=== PATIENT | female | born 1985 | race African-American/Black ===

== ENCOUNTER 2017-10-20 06:51 | Emergency (ER) | payer OTHER ==
[~2017-10-20] VITALS: Ht 152.4 cm; Wt 80.8 kg
[2017-10-20 06:56] VITALS: TEMP 36.9; Ht 152.4 cm; Wt 80.8 kg
[2017-10-20 07:28] VITALS: O2SAT 99
[2017-10-20 08:02] LABS: BASO % 0.3 %; BASO ABS # 0.02 K/uL (0-0.2); EOS % 1.1 %; EOS ABS # 0.08 K/uL (0-0.5); HEMATOCRIT 28.1 % (37-47); HEMOGLOBIN 8.7 g/dL (12.0-16.0); IG# 0.01 K/uL (0.00-0.02); LYMPH % 38.8 %; LYMPH ABS # 2.79 K/uL (1.2-3.4); MEAN CELL VOLUME 73.4 fL (80-100); MEAN CORPUSCULAR HEMOGLOBIN 22.7 pg (25-34); MEAN PLATELET VOLUME 9.9 fL (7.4-10.4); MONO % 5.8 %; MONO ABS # 0.42 K/uL (0.11-0.59); NEUT % 53.9 %; NEUT ABS # 3.88 K/uL (1.4-6.5); PLATELET COUNT 360 K/uL (130-400); RED CELL DISTRIBUTION WIDTH CV 17.7 % (11.5-14.5); RED CELL DISTRIBUTION WIDTH SD 47.7 fL (36.4-46.3)
[2017-10-20 08:14] LABS: ALBUMIN 3.1 gm/dl (3.4-5.0); ALT/SGPT 20 U/L (12-78); BLOOD UREA NITROGEN 9 mg/dl (7-18); CALCIUM 7.9 mg/dl (8.5-10.1); CARBON DIOXIDE 25 mmol/L (21-32); CREATININE 0.64 mg/dl (0.60-1.20); GLUCOSE 78 mg/dl (70-99); POTASSIUM 3.9 mmol/L (3.5-5.1); SODIUM 137 mmol/L (136-145)
--- NOTE | 2017-10-20 08:15 | EMERGENCY ROOM VISIT NOTE ---
History First contact with patient: 07:01 Chief Complaint: OTHER COMPLAINT Stated Complaint: ITCHING AND BURNING History of Present Illness The patient is a 32 year old female who presents to the Emergency Room via private vehicle with complaints of "itching and burning". The patient states that she recently flew from [place] to [place] and then drove to here in [place]. She states that she feels very tired. She states this fatigue has been ongoing for the past few weeks. She has a history of iron deficiency anemia. She is questioning whether or not she has been exposed to an STD, noting sexual partners in a nonmonogamous relationship and without protection. She notes itching and burning in the vaginal area 2 days. She also notes burning when she urinates. There is no fever or chills. Her only medical problems are that of gastric bypass and asthma. No hematochezia, hematemesis, or melena. No vaginal bleeding. Review of Systems A complete 10-point Review of Systems was discussed with the patient, with pertinent positives and negatives listed in the History of Present Illness. All remaining Review of Systems questions can be considered negative unless otherwise specified. Past Medical/Surgical History Gastric bypass and asthma. Family History Noncontributory. Social History Smoking Status: Current Every Day Smoker Patient notes that she will be living locally for a while. Current/Historical Medications Scheduled Cephalexin Monohydrate (Keflex), 500 MG PO BID Physical Exam Vital Signs Date Time Temp Pulse Resp B/P (MAP) Pulse Ox O2 Delivery O2 Flow Rate FiO2 10/20/17 11:31 98 18 120/72 98 Room Air 10/20/17 10:24 107 18 98 Room Air 10/20/17 09:00 95 18 123/77 98 Room Air 10/20/17 07:37 105 10/20/17 07:28 99 Room Air 10/20/17 06:56 36.9 110 20 113/72 94 Room Air Physical Exam VITAL SIGNS - Vital signs and nursing notes were reviewed. Stable. Slightly tachycardic at 110 bpm. GENERAL -32-year-old female appearing her stated age who is in no acute distress. She does appear to be quite tired, but is acting appropriate. She did fall asleep 3 times during the questioning portion of exam. Communicates well with provider and answers questions appropriately. SKIN - Without rashes. No meningeal or petechial rashes. HEAD - NC/AT. EYES - PERRL with EOMI bilaterally. Sclera anicteric. EARS - No deformities of external structures noted on gross examination bilaterally. NOSE - Midline and without cyanosis. No epistaxis or purulent drainage noted. MOUTH/OROPHARYNX - Without perioral cyanosis. NECK - Neck with FROM. No nuchal rigidity. LUNGS - Chest wall symmetric without accessory muscle use, intercostals retractions, or central cyanosis. Normal vesicular breath sounds CTA B/L. No wheezes, rales, or rhonchi appreciated. CARDIAC - RRR with S1/S2. No murmur, rubs, or gallops appreciated. ABDOMEN - Abdominal contour normal without pulsations or visible masses. BS normoactive all four quadrants. Minimal suprapubic abdominal tenderness. No palpable masses, hepatosplenomegaly, or ascites noted. EXTREMITIES - No clubbing or peripheral cyanosis. No pretibial edema present. + 5/5 strength noted in UE/LE bilaterally. NEUROLOGIC - Cranial nerves II through XII grossly intact. Sensory intact to light touch throughout. PSYCH - A&O, and cooperates fully with examiner. Pt is very pleasant and interacts well with examiner. PELVIC EXAM: The patient's nurse (Cristina) was present to assist with exam, and shoe stitcher odd. The patient was educated upon what the pelvic exam was, and she was offered to decline. Patient did not decline and requested testing for STIs. I explained to her the pelvic exam. The patient was prepared and positioned for best examination. Patient was positioned by nurse. The external genitalia, mons pubis, labia majora, labia minora, clitoris, urethral meatus, Bartholin's glands , perineum, and anus were within normal limits. The speculum was held then a 45 angle and properly lubricated, the speculum was inserted without difficulty to the depth of the cervix. Speculum was then open slowly. Cervix was identified. The cervix was within normal limits and did not display any purulent discharge nor was erythematous. Small white adhering circular slightly raised lesions noted on the deeper vaginal wall. This may be discharge and was white in nature. At this time 3 samples were taken of the normal discharge. These were cultured. The speculum was then closed and removed without difficulty. I then explained to the patient that I was in a perform a bimanual pelvic examination. I then introduced the index finger into the vaginal vault, palpated the cervix and cervical os and noted no abnormalities. The uterine body, apex and fundus were then palpated and were within normal limits, and position. The ovaries were then palpated with my left hand pressing over the lower quadrants of the abdomen and my right index finger pressing in the region of the ovary with no abnormal findings. Minimal tenderness to palpation of the vaginal vault. No findings of PID. The exam was concluded, the nurse felt the patient back to her bed. Exam was unremarkable and tolerated well without complication. Medical Decision & Procedures Laboratory Results 10/20/17 07:34 Red Blood Count 3.83, Mean Corpuscular Volume 73.4, Mean Corpuscular Hemoglobin 22.7, Mean Corpuscular Hemoglobin Concent 31.0, Mean Platelet Volume 9.9, Neutrophils (%) (Auto) 53.9, Lymphocytes (%) (Auto) 38.8, Monocytes (%) (Auto) 5.8, Eosinophils (%) (Auto) 1.1, Basophils (%) (Auto) 0.3, Neutrophils # (Auto) 3.88, Lymphocytes # (Auto) 2.79, Monocytes # (Auto) 0.42, Eosinophils # (Auto) 0.08, Basophils # (Auto) 0.02 10/20/17 07:34 Test 10/20/17 07:22 10/20/17 07:34 10/20/17 08:25 Urine Color YELLOW Urine Appearance CLEAR (CLEAR) Urine pH 6.0 (4.5-7.5) Urine Specific [place] 1.007 (1.000-1.030) Urine Protein NEG (NEG) Urine Glucose (UA) NEG (NEG) Urine Ketones NEG (NEG) Urine Occult Blood NEG (NEG) Urine Nitrite NEG (NEG) Urine Bilirubin NEG (NEG) Urine Urobilinogen NEG (NEG) Urine Leukocyte Esterase SMALL (NEG) Urine WBC (Auto) 10-30 /hpf (0-5) Urine RBC (Auto) 0-4 /hpf (0-4) Urine Hyaline Casts (Auto) 0 /lpf (0-5) Urine Epithelial Cells (Auto) 10-20 /lpf (0-5) Urine Bacteria (Auto) 1+ (NEG) Urine Test NEG (NEG) Urine Opiates Screen NEG (NEG) Urine Methadone, Qualitative NEG (NEG) Urine Barbiturates NEG (NEG) Urine Phencyclidine (PCP) Level NEG (NEG) Ur Amphetamine/Methamphetamine NEG (NEG) MDMA (Ecstasy) Screen NEG (NEG) Urine Benzodiazepines Screen NEG (NEG) Urine Cocaine Metabolite NEG (NEG) Urine Marijuana (THC) POS (NEG) White Blood Count 7.20 K/uL (4.8-10.8) Red Blood Count 3.83 M/uL (4.2-5.4) Hemoglobin 8.7 g/dL (12.0-16.0) Hematocrit 28.1 % (37-47) Mean Corpuscular Volume 73.4 fL (80-100) Mean Corpuscular Hemoglobin 22.7 pg (25-34) Mean Corpuscular Hemoglobin Concent 31.0 g/dl (32-36) Platelet Count 360 K/uL (130-400) Mean Platelet Volume 9.9 fL (7.4-10.4) Neutrophils (%) (Auto) 53.9 % Lymphocytes (%) (Auto) 38.8 % Monocytes (%) (Auto) 5.8 % Eosinophils (%) (Auto) 1.1 % Basophils (%) (Auto) 0.3 % Neutrophils # (Auto) 3.88 K/uL (1.4-6.5) Lymphocytes # (Auto) 2.79 K/uL (1.2-3.4) Monocytes # (Auto) 0.42 K/uL (0.11-0.59) Eosinophils # (Auto) 0.08 K/uL (0-0.5) Basophils # (Auto) 0.02 K/uL (0-0.2) RDW Standard Deviation 47.7 fL (36.4-46.3) RDW Coefficient of Variation 17.7 % (11.5-14.5) Immature Granulocyte % (Auto) 0.1 % Immature Granulocyte # (Auto) 0.01 K/uL (0.00-0.02) Red Blood Cell Morphology Unremarkable Erythrocyte Sedimentation Rate 37 mm/hr (0-21) Anion Gap 6.0 mmol/L (3-11) Est Creatinine Clear Calc Drug Dose 117.7 ml/min Estimated GFR () 135.9 Estimated GFR (Non- 117.2 BUN/Creatinine Ratio 13.4 (10-20) Calcium Level 7.9 mg/dl (8.5-10.1) Magnesium Level 2.1 mg/dl (1.8-2.4) Total Bilirubin 0.2 mg/dl (0.2-1) Aspartate Amino Transf (AST/SGOT) 18 U/L (15-37) Alanine Aminotransferase (ALT/SGPT) 20 U/L (12-78) Alkaline Phosphatase 96 U/L (45-117) Total Creatine Kinase 86 U/L (26-192) Creatine Kinase MB < 0.5 ng/ml (0.5-3.6) Creatine Kinase MB Ratio (0-3.0) Total Protein 7.1 gm/dl (6.4-8.2) Albumin 3.1 gm/dl (3.4-5.0) Globulin 4.0 gm/dl (2.5-4.0) Albumin/Globulin Ratio 0.8 (0.9-2) Thyroid Stimulating Hormone (TSH) 1.160 uIu/ml (0.300-4.500) Date/Time Source Procedure Growth Status 10/20/17 08:25 Cervix Drainage Trichomonas Preparation - Final Complete Medications Administered Medications (Trade) Dose Ordered Sig/Aquilino Route Start Time Stop Time Status Last Admin Dose Admin Ceftriaxone Sodium (Rocephin Inj) 1 gm NOW STAT IV 10/20/17 08:29 10/20/17 08:31 DC 10/20/17 09:07 1 GM Azithromycin (Zithromax Tab) 500 mg NOW STAT PO 10/20/17 08:29 10/20/17 08:31 DC 10/20/17 09:07 500 MG Sodium Chloride 1,000 ml @ 999 mls/hr Q1H1M STAT IV 10/20/17 08:31 10/20/17 09:31 DC 10/20/17 09:00 999 MLS/HR Sodium Chloride 1,000 ml @ 999 mls/hr Q1H1M STAT IV 10/20/17 10:07 10/20/17 11:07 DC 10/20/17 10:15 999 MLS/HR Medical Decision Patient was seen and evaluated as above in room B9. She presents to us with fatigue, vaginal itching/burning. Review was performed of nursing notes and vital signs. After obtaining a thorough history and physical examination the above work up was performed. She would like to be tested for STI's. I informed her that unfortunately she would have to go to a local resource center for HIV and hepatitis testing. I did however inform her that we could do gonorrhea, chlamydia and Trichomonas testing here. Her CBC reveals no concerning leukocytosis. There is anemia with hemoglobin of 8.7. Baseline is unknown. Patient notes that she does have an underlying deficiency of iron and begin iron supplementation. ESR elevated at 37 likely of no significance. Patient's metabolic panel reveals no evidence of kidney liver failure. Calcium is low at 7.9. Patient's urine reveals bacteria, skin cells white blood cells and leukocytes. This is likely contaminated sample however culture will be ordered. Urine test negative. Tox screen positive for marijuana. Patient consented to pelvic exam and cultures were obtained. No significant abnormality identified. She will be treated because of her risks are identified the history with Rocephin and azithromycin. This is for any potential gonorrhea or chlamydial infection. She was given 2 L of fluids here. It is important to note that during the history portion of the examination the patient fell asleep 3 times. When she was given fluids and rested here she seem much more awake and alert. There was no altered mental status. Patient was ambulating around the emergency department with assistance testing for decreased oxygen saturation or tachycardia. She did well. No excessive shortness of breath. I do not suspect that her shortness of breath is from PE. This is been ongoing and she is not hypoxic. Wells criteria score of 1. I do believe that however follow-up is important. She is to follow with her family doctor. In regard to the decreased hemoglobin, she denied any hematochezia, hematemesis or melena. No vaginal bleeding. This is likely of iron deficiency in etiology. Again she is to follow-up for this. Case was discussed with the attending physician. She will be treated for a suspected UTI given her symptoms as well with Keflex. Culture pending. The patient was educated upon management, had questions answered prior to discharge, and was discharged home in good condition. EKG per my interpretation reveals short AR, otherwise normal sinus rhythm with sinus arrhythmia. I attest that I have personally reviewed the patient medication list. I attest that I have reviewed the patient's blood pressure and it was found to be normal upon presentation. In the evaluation and treatment of this patient the following differential diagnoses were entertained: UTI, STD, yeast infection, MS, PE, symptomatically anemia, among others. Impression Primary Impression: Urinary tract infection symptoms Additional Impressions: Anemia Hypocalcemia Fatigue Departure Information Dispostion Home / Self-Care Condition GOOD Prescriptions Cephalexin Monohydrate (Keflex) 500 Mg Cap 500 MG PO BID for 10 Days, #20 CAP Prov: Kannan Pan PA-C 10/20/17 Referrals No Doctor, Assigned (PCP) Patient Instructions My [facility] Additional Instructions You have been treated in the Emergency Department for a a suspected Urinary Tract Infection (UTI) and fatigue/tiredness. Your hemoglobin was low today at 8.7, I recommend having this repeated with your family doctor. Your calcium is also low. Your urine does not show a clear UTI infection however given her symptoms we will treat. This is Keflex 500 mg every 12 hours for 10 days. You may begin this tomorrow since you received antibiotics already here. This is an antibiotic. All antibiotics have the potential to cause diarrhea. Stop this medication and contact a medical provider if you were to develop any significant adverse side effects including: wheezing, shortness of breath, passing out, vomiting, or a diffuse rash. Always take antibiotics as directed and COMPLETE the ENTIRE course regardless of the improvement of your symptoms. You were also treated here for any potential gonorrhea or chlamydia infection. I do recommend follow-up with a local clinic which I provided the contact information for you in regard to further testing for STI's/STDs as we discussed. For pain control, you can use the following [id number] medicines: - Regular strength (325mg/tab) Tylenol (acetaminophen) 2 tabs every 4-6 hours as needed. Do not exceed 12 tablets in a 24 hour period. Avoid taking more than 3 grams (3000 mg) of Tylenol per day. This includes any other sources of acetaminophen you may take on a regular basis. - Regular strength (200 mg/tab) Advil (ibuprofen) 1-2 tabs every 4-6 hours as needed. Do not exceed a dose of 3200 mg per day. Return to the emergency department if your symptoms worsen despite treatment course outlined above. Drink plenty of water and stay well hydrated. As with any trip to the Emergency Department, you should follow-up with your Primary Care Provider from today's visit. Return to the emergency department if your symptoms persist despite treatment plan outlined above or if the following symptoms occur: increased fevers, chills , low back pain, nausea/vomiting, or blood in your urine. Problem Qualifiers
[2017-10-20 08:25] LABS: ALKALINE PHOSPHATASE 96 U/L (45-117); AST/SGOT 18 U/L (15-37); CKMB < 0.5 ng/ml (0.5-3.6); TOTAL PROTEIN 7.1 gm/dl (6.4-8.2)
[2017-10-20] MEDS ORDERED: AZITHROMYCIN 250 MG TAB PO STA (08:29)
[2017-10-20] MEDS ORDERED: CEFTRIAXONE SOD INJ 1 GM ADDVIAL IV STA (08:29)
[2017-10-20] MEDS ORDERED: SODIUM CHLORIDE 0.9% 1000ML 1,000 ML IV STA ×2 (08:31→10:07)
[2017-10-20] MEDS ORDERED: CEPH500C PO (11:10)
[2017-10-20 11:31] VITALS: BP 120/72; PULSE 98; O2SAT 98
--- NOTE | 2017-10-22 13:29 | Pharmacy Progress Note ---
ED Pharmacist Culture FollowUp Date of Service: Oct 22, 2017. Patient was sent home with a prescription for cephalexin, which should cover the Klebsiella pneumoniae growing from the patient's urine culture, based on reported sensitivity to cefazolin.
== END 2017-10-20 11:50 | disposition home or self-care (01) ==
LOC: C.EDB 06:52
DX: N94.819 Vulvodynia, unspecified (principal); L29.2 Pruritus vulvae; D64.9 Anemia, unspecified; E83.51 Hypocalcemia; R53.83 Other fatigue; J45.909 Unspecified asthma, uncomplicated; F17.200 Nicotine dependence, unspecified, uncomplicated; Z98.84 Bariatric surgery status